=== PATIENT | female | born 1975 | race Caucasian/White ===

== ENCOUNTER → 2018-05-24 | Outpatient (CLI) | payer BC ==
--- NOTE | 2018-05-25 07:25 | Diagnostic Imaging Report ---
Exam: Right rib radiographs History: Contusion on right chest wall, pain Comparison: None. Findings: The lungs are well-inflated and without focal airspace consolidation, pleural effusion, or pneumothorax. Cardiomediastinal contour and pulmonary vasculature are within normal limits. No displaced right rib fractures. Impression: No displaced right rib fracture or pneumothorax. Signed by: Dr. Henry Quinteros M.D. on 05/25/2018 7:22 AM
== END ==
LOC: RAD 15:33
PROVIDERS: ATTEND General Practice
DX: S20.211A Contusion of right front wall of thorax, initial encounter (principal); R07.89 Other chest pain
CPT/HCPCS: 71101